=== PATIENT | male | born 1985 | race Caucasian/White ===

== ENCOUNTER 2020-09-12 17:15 | Emergency (ER) | payer BC ==
[~2020-09-12] VITALS: Ht 180.3 cm; Wt 75.0 kg
[~2020-09-12 17:15] MED LIST: NO HOME MEDICATIONS
[2020-09-12 17:35] VITALS: BP 137/95; TEMP 98.6
[2020-09-12 18:28] VITALS: PULSE 75
== END 2020-09-12 18:31 | disposition home or self-care (01) ==
LOC: COL.ER 17:15
DX: S61.412A Laceration without foreign body of left hand, initial encounter (principal); W26.9XXA Contact with unspecified sharp object(s), initial encounter